=== PATIENT | male | born 1990 | race African-American/Black ===

== ENCOUNTER 2018-08-31 23:53 | Emergency (ER) | payer MEDICAID ==
[~2018-08-31] VITALS: Ht 165.1 cm; Wt 61.0 kg
[2018-09-01] MEDS ORDERED: IBUPROFEN 600MG TABLET PO STA (06:55)
[2018-09-01 07:49] VITALS: BP 122/78
== END 2018-09-01 07:52 | disposition home or self-care (01) ==
LOC: ER 23:53
DX: L03.211 Cellulitis of face (principal); F17.210 Nicotine dependence, cigarettes, uncomplicated
CPT/HCPCS: 99283